=== PATIENT | female | born 1985 | race Caucasian/White ===

== ENCOUNTER 2018-05-30 02:56 | Emergency (ER) | payer BC, SELFPAY ==
--- NOTE | 2018-05-30 03:29 | EDPHYS ---
Physician Documentation [facility] Name: Fanny Chowdhury Age: 32 yrs Sex: Female : 1985 Arrival Date: 05/30/2018 Time: 02:57 Bed 13 Private MD: ANITRA BOCANEGRA ED Physician Dakotah Hu HPI: 05/30 03:20 This 32 yrs old Female presents to ER via Unassigned with complaints of juan carlos Allergic Reaction, Facial Swelling. 03:20 The patient presents with localized swelling. Onset: The symptoms/episode juan carlos began/occurred 3 day(s) ago. Associated signs and symptoms: The patient has no apparent associated signs or symptoms. Possible causes: antibiotics, penicillin. At home the patient or guardian has treated the symptoms with nothing. Severity of symptoms: At their worst the symptoms were mild in the emergency department the symptoms have improved moderately. The patient has not experienced similar symptoms in the past. 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 - Social history:: Smoking status: Patient/guardian denies using tobacco, never smoked. - Ebola Screening: : No symptoms or risks identified at this time. ROS: 03:22 Constitutional: Negative for fever, chills, and weight loss, Eyes: Negative for injury, juan carlos pain, redness, and discharge, Neck: Negative for injury, pain, and swelling, Cardiovascular: Negative for chest pain, palpitations, and edema, Respiratory: Negative for shortness of breath, cough, wheezing, and pleuritic chest pain, Abdomen/GI: Negative for abdominal pain, nausea, vomiting, diarrhea, and constipation, Back: Negative for injury and pain, : Negative for injury, bleeding, discharge, and swelling, MS/Extremity: Negative for injury and deformity, Skin: Negative for injury, rash, and discoloration, Neuro: Negative for headache, weakness, numbness, tingling, and seizure. 03:22 ENT: Positive for dental pain, ear pain. Exam: 03:22 Constitutional: This is a well developed, well nourished patient who is awake, alert, juan carlos and in no acute distress. Eyes: Pupils equal round and reactive to light, extra-ocular motions intact. Lids and lashes normal. Conjunctiva and sclera are non-icteric and not injected. Cornea within normal limits. Periorbital areas with no swelling, redness, or edema. Neck: Trachea midline, no thyromegaly or masses palpated, and no cervical lymphadenopathy. Supple, full range of motion without nuchal rigidity, or vertebral point tenderness. No Meningismus. Chest/axilla: Normal chest wall appearance and motion. Nontender with no deformity. No lesions are appreciated. Cardiovascular: Regular rate and rhythm with a normal S1 and S2. No gallops, murmurs, or rubs. Normal PMI, no JVD. No pulse deficits. Respiratory: Lungs have equal breath sounds bilaterally, clear to auscultation and percussion. No rales, rhonchi or wheezes noted. No increased work of breathing, no retractions or nasal flaring. Abdomen/GI: Soft, non-tender, with normal bowel sounds. No distension or tympany. No guarding or rebound. No evidence of tenderness throughout. Back: No spinal tenderness. No costovertebral tenderness. Full range of motion. Skin: Warm, dry with normal turgor. Normal color with no rashes, no lesions, and no evidence of cellulitis. MS/ Extremity: Pulses equal, no cyanosis. Neurovascular intact. Full, normal range of motion. Neuro: Awake and alert, GCS 15, oriented to person, place, time, and situation. Cranial nerves II-XII grossly intact. Motor strength 5/5 in all extremities. Sensory grossly intact. Cerebellar exam normal. Normal gait. 03:22 Head/face: Noted is swelling, tenderness, that is mild, that is moderate, of the right jaw and left jaw. 03:22 ENT: Mouth: Lips: normal, moist, Oral mucosa: moist, Gums: noted to have cellulitis, Tongue: is normal, abscess, is not appreciated, drooling, is not appreciated. Vital Signs: 03:00 BP 152 / 98; Pulse 105; Resp 20; Temp 98.9(O); Pulse Ox 97% on R/A; Weight 208.65 kg; cc3 Height 5 ft. 8 in. (172.72 cm); 03:50 BP 114 / 74; Pulse 103; Resp 20 S; Pulse Ox 96% on R/A; cc3 03:00 Body Mass Index 69.94 (208.65 kg, 172.72 cm) cc3 MDM: 02:59 Patient medically screened. [facility] 03:24 Data reviewed: vital signs, nurses notes, lab test result(s), urinalysis. [facility] 05/30 03:20 Order name: Blood Glucose Level; Complete Time: 03:43 [facility] 05/30 03:20 Order name: Urine Dipstick-Ancillary (obtain specimen); Complete Time: 03:56 [facility] 05/30 03:20 Order name: Urine Test (obtain specimen); Complete Time: 03:56 [facility] Administered Medications: 03:32 Not Given (Duplicate Order): ERYTHromycin 500 mg PO once [facility] 03:33 Drug: Benadryl 50 mg Route: PO; cc3 03:50 Follow up: Response: No adverse reaction 3 03:33 Drug: Pepcid 40 mg Route: PO; cc3 03:50 Follow up: Response: No adverse reaction [facility] 03:33 CANCELLED (Duplicate Order): AZITHromycin 500 mg PO once [facility] 03:35 Drug: Zithromax 500 mg Route: PO; cc3 03:50 Follow up: Response: No adverse reaction 3 Point of Care Testing: Blood Glucose: 03:42 Blood Glucose: 98 mg/dL; cc3 Ranges: Critical Glucose Levels:Adult <50 mg/dl or >400 mg/dl <40 mg/dl or >180 mg/dl Disposition: 05/30/18 03:28 Discharged to Home. Impression: Allergy status to penicillin, Dental caries, Dental caries, unspecified, Obesity, unspecified. - Condition is Stable. - Discharge Instructions: Allergies, Adult, Dental Caries, Adult, Dental Pain, Obesity, Adult, Dental Pain, [id number]. - Prescriptions for Benadryl 25 mg Oral Capsule - take 1 capsule by ORAL route every 6 hours As needed; 30 tablet. Pepcid 20 mg Oral Tablet - take 1 tablet by ORAL route every 12 hours for 10 days; 20 tablet. Zithromax 500 mg Oral Tablet - take 1 tablet by ORAL route once daily for 5 days; 5 tablet. - Medication Reconciliation Form, Thank You Letter, Antibiotic Education, Prescription Opioid Use form. - Follow up: Virginia Simpson DDS; When: Today; Reason: Recheck today's complaints, Continuance of care, Re-evaluation by your physician. - Problem is new. - Symptoms have improved. Signatures: Dakotah Hu MD MD cha Cordel, Charlene cc3 Corrections: (The following items were deleted from the chart) 03:33 03:33 AZITHromycin 500 mg PO once ordered. cc3 cc3 04:00 03:28 05/30/2018 03:28 Discharged to Home. Impression: Allergy status to penicillin; cc3 Dental caries; Dental caries, unspecified; Obesity, unspecified. Condition is Stable. Forms are Medication Reconciliation Form, Thank You Letter, Antibiotic Education, Prescription Opioid Use. Follow up: Virginia Simpson; When: Today; Reason: Recheck today's complaints, Continuance of care, Re-evaluation by your physician. Problem is new. Symptoms have improved. juan carlos
--- NOTE | 2018-05-30 03:29 | ER ---
Nurse's Notes [facility] Name: Fanny Chowdhury Age: 32 yrs Sex: Female : 1985 Arrival Date: 05/30/2018 Time: 02:57 Bed 13 Private MD: ANITRA BOCANEGRA Diagnosis: Allergy status to penicillin;Dental caries;Dental caries, unspecified;Obesity, unspecified Presentation: 05/30 03:00 Presenting complaint: Patient states: facial rash and right side facial swelling cc3 sustained from taking antibiotic Clindamycin for 2 days for her tooth abscess. Transition of care: patient was not received from another setting of care. Onset: The symptoms/episode began/occurred last night. Anaphylaxis evaluation, patient states that she feels that her tongue is swollen but denies difficulty of breathing. Noted to have mild lip swelling. Onset of symptoms was May 29, 2018. Risk Assessment: Do you want to hurt yourself or someone else? Patient reports no desire to harm self or others. Initial Sepsis Screen: Does the patient meet any 2 criteria? No. Patient's initial sepsis screen is negative. Does the patient have a suspected source of infection? No. Patient's initial sepsis screen is negative. Care prior to arrival: None. 03:00 Method Of Arrival: Ambulatory cc3 03:00 Acuity: SABI 3 cc3 Triage Assessment: 03:00 General: Appears in no apparent distress. comfortable, Behavior is calm, cooperative, cc3 appropriate for age. 03:00 Pain: Complains of pain in right jaw and left jaw. EENT: Reports mild throat pain. cc3 Neuro: Level of Consciousness is awake, alert, obeys commands, Oriented to person, place, time, situation, Appropriate for age. Cardiovascular: Denies chest pain. Respiratory: Airway is patent Respiratory effort is even, unlabored, Respiratory pattern is regular, symmetrical. GI: Abdomen is round obese. : No signs and/or symptoms were reported regarding the genitourinary system. Derm: Reports facial rash. Musculoskeletal: Circulation, motion, and sensation intact. Range of motion: intact in all extremities. 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 - Social history:: Smoking status: Patient/guardian denies using tobacco, never smoked. - Ebola Screening: : No symptoms or risks identified at this time. Screenin:00 Abuse screen: Denies threats or abuse. Denies injuries from another. Nutritional cc3 screening: No deficits noted. Tuberculosis screening: No symptoms or risk factors identified. Fall Risk Ambulatory Aid- None/Bed Rest/Nurse Assist (0 pts). Gait- Normal/Bed Rest/Wheelchair (0 pts) Mental Status- Oriented to own ability (0 pts). Assessment: 03:00 Pain: Complains of pain in left jaw and right jaw. Respiratory: Airway is patent cc3 Respiratory effort is even, unlabored, Respiratory pattern is regular, symmetrical. 03:00 Respiratory: Breath sounds are clear bilaterally. cc3 04:00 Reassessment: Patient appears in no apparent distress at this time. Patient and/or cc3 family updated on plan of care and expected duration. Pain level reassessed. Patient is alert, oriented x 3, equal unlabored respirations, skin warm/dry/pink. Dr. Hu discharged home the patient with prescriptions given. No IV cannula in situ. Patient left ER vitally stable and ambulatory with her . Vital Signs: 03:00 BP 152 / 98; Pulse 105; Resp 20; Temp 98.9(O); Pulse Ox 97% on R/A; Weight 208.65 kg; cc3 Height 5 ft. 8 in. (172.72 cm); 03:50 BP 114 / 74; Pulse 103; Resp 20 S; Pulse Ox 96% on R/A; cc3 03:00 Body Mass Index 69.94 (208.65 kg, 172.72 cm) cc3 ED Course: 02:57 Patient arrived in ED. ds1 02:58 ANITRA BOCANEGRA is Private Physician. ds1 02:59 Dakotah Hu MD is Attending Physician. juan carlos 03:00 Arm band placed on right wrist. cc3 03:00 Patient has correct armband on for positive identification. Bed in low position. Call cc3 light in reach. Side rails up X 1. Pulse ox on. NIBP on. 03:09 Rosa Isela Parks is Primary Nurse. cc3 03:26 Virginia Simpson DDS is Referral Physician. [facility] 04:00 No provider procedures requiring assistance completed. Patient did not have IV access cc3 during this emergency room visit. 04:03 Triage completed. cc3 Administered Medications: 03:32 Not Given (Duplicate Order): ERYTHromycin 500 mg PO once juan carlos 03:33 Drug: Benadryl 50 mg Route: PO; cc3 03:50 Follow up: Response: No adverse reaction cc3 03:33 Drug: Pepcid 40 mg Route: PO; cc3 03:50 Follow up: Response: No adverse reaction cc3 03:33 CANCELLED (Duplicate Order): AZITHromycin 500 mg PO once cc3 03:35 Drug: Zithromax 500 mg Route: PO; cc3 03:50 Follow up: Response: No adverse reaction cc3 Point of Care Testing: Blood Glucose: 03:42 Blood Glucose: 98 mg/dL; cc3 Ranges: Outcome: 03:28 Discharge ordered by . [facility] 04:00 Patient left the ED. cc3 04:00 Discharged to home ambulatory, with family. cc3 04:00 Condition: stable 04:00 Discharge instructions given to patient, family, Instructed on discharge instructions, follow up and referral plans. medication usage, Demonstrated understanding of instructions, follow-up care, medications, Prescriptions given X 3. Signatures: Dakotah Hu MD MD cha Sanford, Gely ds1 Rosa Isela Parks cc3 Corrections: (The following items were deleted from the chart) 04:06 03:00 General: Appears in no apparent distress. comfortable, Behavior is calm, cc3 cooperative, appropriate for age, cc3
[2018-05-30] MEDS ORDERED: DIPHENHYDRAMINE 25 MG TAB/CAP ONE (03:34)
[2018-05-30] MEDS ORDERED: FAMOTIDINE 20 MG TAB ONE (03:34)
[2018-05-30] MEDS ORDERED: AZITHROMYCIN 250 MG TAB ONE (03:38)
== END 2018-05-30 04:00 | disposition home or self-care (01) ==
LOC: ER 02:56
DX: T78.40XA Allergy, unspecified, initial encounter (principal); Z88.0 Allergy status to penicillin; K02.9 Dental caries, unspecified; E66.9 Obesity, unspecified; Z88.6 Allergy status to analgesic agent; Z91.040 Latex allergy status; Z88.3 Allergy status to other anti-infective agents
CPT/HCPCS: 82962; 99283